=== PATIENT | female | born 1960 | race Caucasian/White ===

== ENCOUNTER 2018-09-28 10:46 | Emergency (ER) | payer OTHER ==
[2018-09-28 10:57] VITALS: BP 151/90
--- NOTE | 2018-09-28 11:27 | UC ---
Respiratory Complaint HPI - HPI Summary HPI Summary: Pt presents to UC reports 5 days progressive cough and congestion. Pt states started as head congestion but settled in chest. Cough and wheeze, yellow-green production. Pt with sinus congestion and yellow discharge. no chest pain. No nausea, vomiting. no edema. No dysuria, diarrhea. No SINGLETARY, vision changes. Pt reports fever last week- none currently. Pt has used OTC Alkaseltzer, Vicks with little improvement. No asthma, COPD, lung hx. No tobacco. No sick contacts Medications reviewed this visit - History of Current Complaint Chief Complaint: UCRespiratory Stated Complaint: CHEST CONGESTION,SOB Time Seen by Provider: 09/28/18 11:26 Hx Obtained From: Patient ?: No Onset/Duration: Gradual Onset Severity Initially: Mild Severity Currently: Mild Pain Intensity: 0 - Allergies/Home Medications Allergies/Adverse Reactions: Allergies Allergy/AdvReac Type Severity Reaction Status Date / Time No Known Allergies Allergy Verified 09/28/18 10:53 Home Medications: Home Medications Doxylamine/Phenylep/Dm/Aspirin [Vita-[place] Day-Night Tab Eff] 1 each PO BID [History Confirmed 09/28/18] PMH/Surg Hx/FS Hx/Imm Hx Previously Healthy: Yes - neg cardiac cath several years ago - Surgical History Surgical History: Yes Surgery Procedure, Year, and Place: hernia repair. hysterectomy. choley - Family History Known Family History: Positive: Cardiac Disease, Hypertension - Social History Occupation: Retired Alcohol Use: Occasionally Substance Use Type: None Smoking Status (MU): Never Smoked Tobacco Review of Systems All Other Systems Reviewed And Are Negative: Yes Constitutional: Positive: Fever - last week- resolved, Fatigue Eyes: Positive: Negative ENT: Positive: Nasal Discharge, Sinus Congestion, Sinus Pain/Tenderness Respiratory: Positive: Shortness Of Breath, Cough - productive green sputum Gastrointestinal: Positive: Negative Genitourinary: Positive: Negative Motor: Positive: Negative Is Patient Immunocompromised?: No Physical Exam - Summary Physical Exam Summary: Vital Signs Reviewed: Yes A+Ox3, coarse Eyes: Conjunctiva Clear, JEREMIE. EOM intact and full ENT: Hearing grossly normal TM x 2 clear, turbinates inflammed and boggy, + PND , mmoist, uvula midline, no exudate, no erythema Neck: Positive: Supple Respiratory: Positive: Coarse cough, + scattered wheeze R>L No retractions speaking full sentences interrupted by coughing Cardiovascular: borderline tachy - RRR nl s1, s2 no m/r CBT <2 sec abd soft + BS nt/nd no guarding, no distension Musculoskeletal Exam: RAIN x 4 without difficulty Strength Intact, ROM Intact Neurological: Positive: Alert, + sensation throughout Psychological: Positive: Normal Response To Family Skin: Positive: no rash, no ecchymosis Triage Information Reviewed: Yes Vital Signs: Initial Vital Signs Temp 98 F 09/28/18 10:53 Pulse 108 09/28/18 10:53 Resp 24 09/28/18 10:53 BP 151/90 09/28/18 10:53 Pulse Ox 100 09/28/18 10:53 Diagnostics - Radiology No standard instances Radiology Interpretation Completed By: Radiologist - Patient Name: SANTIAGO TAVARES Medical Record#: [id number] Ordering Physician: An Dixon MD Acct.#: [id number] : 1960 Age: 58 Sex: F Location: [facility] Exam Date: 09/28/18 1131 ADM Status: REG ER Order Information: CHEST PA & LAT 2 VWS Accession Number: [id number] CPT: 16116 Indication: Cough, rhonchi 2 views of the chest including dual energy PA views demonstrated no mediastinal shift. There is cardiomegaly noted. Interstitial edema consistent with CHF is noted. IMPRESSION : Cardiomegaly with interstitial edema consistent with CHF. <Electronically signed by Amada Rivera MD in OV> 09/28/18 1153 Dictated By: Amada Rivera MD Dictated Date/Time: 09/28/18 1153 Transcribed Date/Time: 09/28/18 115 Copy to: CC:An Dixon MD; Denise Gastelum MD Imaging - [facility] [address] [place] [address] ph ) ph ([phone]) ([phone]) This report is only to be considered final once signed by the Provider(s) as displayed in the "<Electronically Signed by >" field (s). Absence of a signature indicates the report is in a draft status and still needs to be finalized. In the event this document was created by someone other than the signing Provider, the individual initiating the document will be listed in the "Entered by:" or "Dictated by:" juan. 1 of 1 Re-Evaluation - Re-Evaluation First Eval Change: Unchanged - Patient states does not feel any better after the neb. Patient states in fact she felt her breathing a little bit worse with taking a. Patient continues to have diffuse wheezes throughout. Chest x-ray reveals mild CHF and can't medically. Discussed with patient length. Extensive family history of cardiac disease prepay patient had a negative catheter 2-3 years ago. Patient without any known lung disease. Recommended patient to emergency department for further evaluation treatment patient agreement will drive himself there. Spoke to Estelita Quintero, nurse practitioner in the ED who is aware and expecting patient. Respiratory Course/Dx - Course Course Of Treatment: Patient presents with head congestion the settled in her chest. Patient with coarse cough productive of yellow sputum. Patient states she's had yellow- green sputum from her nares from her head cold. No ear pain. Nurse of her. Patient has used hozp-saf-mitsyqe remedies such as Vita-Roanoke and Vicks with little improvement. Patient states she feels progressively short of breath and wheezing so she came. Patient without history of lung disease. No tobacco use. Patient on examiner be slightly tachycardic at 1 await with normal sats. The patient's blood pressure was borderline but she was coughing. To her medical condition. We'll give chest x-ray did not and reassess. Patient comfortable in agreement with plan. - Differential Dx/Diagnosis Provider Diagnosis: SOB (shortness of breath) Discharge - Sign-Out/Discharge Documenting (check all that apply): Patient Departure All imaging exams completed and their final reports reviewed: Yes - Discharge Plan Condition: Stable Disposition: HOME-RECOMMEND TO ED Patient Education Materials: Shortness of Breath (ED) Referrals: Denise Gastelum MD [Primary Care Provider] - Additional Instructions: The doctor that evaluated you today thinks that you need additional testing that can be completed the emergency department. It is recommended that you go directly to emergency department for further evaluation. This evaluation may include blood work or imaging. This testing will be directed and decided by the provider that evaluate you at the emergency department. If pain becomes worse, you feel lightheaded, you have uncontrolled vomiting, or you have any other concerns while you are being driven to emergency department as recommended to pullover and contact 911. - Billing Disposition and Condition Condition: STABLE Disposition: Home-Recommend to ED
[2018-09-28] MEDS ORDERED: Albuterol/Ipratropium NEB.SOL* Albuterol 2.5 MG/Ipratropium 0.5 MG 3 ML INH ONE (11:31)
== END 2018-09-28 12:12 | disposition home health service (06) ==
LOC: UCCORT 10:46
DX: R06.02 Shortness of breath (principal)
CPT/HCPCS: 71046; 99212; A9270-GY; G0463